=== PATIENT | male | born 1970 | race Caucasian/White ===

== ENCOUNTER 2017-11-19 13:36 | Emergency (ER) | payer OTHER ==
[2017-11-19] MEDS: DEXAMETHASONE 10 MG/ML 1 ML INJ IM (16:50)
== END 2017-11-19 18:35 | disposition home or self-care (01) ==
LOC: FTE 13:36
DX: M25.561 Pain in right knee (principal)
CPT/HCPCS: 73562; 93971; 96372; 99285-25

== ENCOUNTER 2017-11-30 19:07 | Emergency (ER) | payer OTHER ==
[2017-11-30] MEDS: HYDROCODONE/APAP (10/325) TAB PO (22:33)
== END 2017-11-30 22:45 | disposition home or self-care (01) ==
LOC: FTE 19:07
DX: M70.51 Other bursitis of knee, right knee (principal); Y93.89 Activity, other specified
CPT/HCPCS: 99283